=== PATIENT | male | born 1970 | race Two or more races ===

== ENCOUNTER → 2018-06-30 | Outpatient (CLI) | payer OTHER | END | disposition home or self-care (01) | LOC: RAD 501 11:38 | DX: M25.572 Pain in left ankle and joints of left foot (principal) ==

== ENCOUNTER 2018-09-08 11:26 | Outpatient (CLI) | payer OTHER | END 2018-09-08 11:28 | disposition home or self-care (01) | LOC: RAD 11:26 | DX: M25.572 Pain in left ankle and joints of left foot (principal) ==